=== PATIENT | male | born 1970 | race Asian ===

== ENCOUNTER 2020-11-14 21:33 | Emergency (ER) | payer OTHER ==
[~2020-11-14] VITALS: Ht 172.7 cm; Wt 102.1 kg
[2020-11-14 21:42] VITALS: Ht 172.7 cm; Wt 102.1 kg
[2020-11-14] MEDS ORDERED: PRO (22:05)
[2020-11-14] MEDS ORDERED: RAYOS5 MG (22:05)
[2020-11-14] MEDS ORDERED: REGLAN5 M1 (22:05)
[2020-11-14] MEDS ORDERED: ATORVASTATIN CA10 M1 (22:06)
[2020-11-14] MEDS ORDERED: ADULT LOW DOSE81 MG PO (22:06)
[2020-11-14] MEDS ORDERED: CARVEDILOL3.125 M1 (22:07)
[2020-11-14] MEDS ORDERED: MYFORTIC180 MG (22:08)
[2020-11-14] MEDS ORDERED: INSULIN SYRING1 EA29 (22:09)
[2020-11-14] MEDS ORDERED: AZOR 10-20 MG1 EACH (22:09)
[2020-11-14 23:51] LABS: BASOPHIL % 0.6 % (0.2-1.5); PLATELET COUNT 288 x10^3mcL (152-348)
[2020-11-14 23:53] LABS: RED CELL DISTRIBUTION WIDTH 14.7 % (12.1-16.2)
[2020-11-15 00:01] LABS: CALCIUM 8.4 mg/dL (8.5-10.1); CARBON DIOXIDE 27.6 mmol/L (21-32); CREATININE SERUM 2.1 mg/dL (0.7-1.3); POTASSIUM SERUM 4.5 mmol/L (3.5-5.1)
[2020-11-15 00:06] LABS: BILIRUBIN DIRECT 0.06 mg/dL (0.0-0.2); BILIRUBIN TOTAL 0.3 mg/dL (0.20-1.00); TOTAL PROTEIN, SERUM 6.7 g/dL (6.4-8.2)
[2020-11-15 03:11] VITALS: BP 148/76
== END 2020-11-15 03:11 | disposition left against medical advice (07) ==
LOC: ED 21:33
PROVIDERS: Emergency Medicine
DX: M79.671 Pain in right foot (principal); I12.0 Hypertensive chronic kidney disease with stage 5 chronic kidney disease or end stage renal disease; E11.22 Type 2 diabetes mellitus with diabetic chronic kidney disease; N18.6 End stage renal disease; N17.9 Acute kidney failure, unspecified; Z94.0 Kidney transplant status; Z88.8 Allergy status to other drugs, medicaments and biological substances
CPT/HCPCS: 83880